=== PATIENT | male | born 1990 | race Caucasian/White ===

== ENCOUNTER 2023-08-07 21:50 | Emergency (ER) | payer OTHER ==
[~2023-08-07] VITALS: Ht 182.8 cm; Wt 111.1 kg
[2023-08-07] MEDS ORDERED: LABETALOL HCL300 MG PO (22:05)
[2023-08-07] MEDS ORDERED: GLUMETZA500 MG PO (22:06)
[2023-08-07 23:06] LABS: BILIRUBIN Negative (Negative); BLOOD 2+ (Negative); CLARITY Clear (Clear); COLOR Yellow (Yellow); GLUCOSE Negative (Negative); KETONE Negative (Negative); LEUKO ESTERASE Negative (Negative); NITRITE Negative (Negative); PH 5.5 (4.5-8.0); SPECIFIC GRAVITY 1.015 (1.001-1.030); UROBILINOGEN 0.2 E.U./dl (0.0-1.0)
[2023-08-07 23:21] LABS: MUCOUS 1+; RBC 21-30 rbc/hpf (0-2); WBC 0-2 wbc/hpf (0-5)
== END 2023-08-07 23:52 | disposition home or self-care (01) ==
LOC: ED 21:50
PROVIDERS: Internal Medicine
DX: R30.0 Dysuria (principal); I10 Essential (primary) hypertension; E11.9 Type 2 diabetes mellitus without complications; Z88.0 Allergy status to penicillin; Z88.1 Allergy status to other antibiotic agents; Z88.2 Allergy status to sulfonamides; Z88.8 Allergy status to other drugs, medicaments and biological substances